=== PATIENT | female | born 1945 | race African-American/Black ===

== ENCOUNTER 2020-12-24 20:07 | Observation (INO) | payer MEDICARE ==
[2020-12-24] MEDS ORDERED: levETIRAcetam in NS 0 ML ONE (20:30)
[2020-12-24] MEDS ORDERED: levETIRAcetam 500 MG/5 ML VIAL ONE (20:32)
[2020-12-24 20:48] LABS: #Basophils 0.1 10x3/uL (0.0-0.2); #Eosinphils 0.1 10x3/uL (0.0-0.5); #Monocytes 0.8 10x3/uL (0.0-1.1); #Neutrophils 4.2 10x3/uL (1.5-8.4); %Basophils 0.9 % (0.0-2.0); %Eosinophils 0.9 % (0.0-6.0); %Lymphocytes 48.8 % (18.0-47.0); %Monocytes 8.1 % (0.0-10.0); %Neutrophils 40.9 % (40.0-75.0); Hemoglobin 12.6 g/dL (12.0-15.5); Mean Corpuscular HGB CONC 32.1 g/dL (32.0-36.0); Mean Corpuscular Hemoglobin 28.8 pg (27.0-33.0); Mean Corpuscular Volume 89.7 fl (81.6-98.3); Mean Platelet Volume 9.9 fl (7.4-10.4); Platelet Count 284 10x3/uL (150-450); RBC Distribution Width 13.5 % (11.5-14.5); Red Blood Cell (RBC) Count 4.38 10x6/uL (3.90-5.03); White Blood Cell (WBC) Count 10.2 10x3/uL (3.5-10.5)
[2020-12-24 21:03] LABS: ALT (SGPT) 10 U/L (8-55); AST (SGOT) 12 U/L (5-34); Acetaminophen Less than 6.0 mcg/mL (10.0-30.0); Albumin 3.9 g/dL (3.4-4.8); Alcohol Less than 10 mg/dL (Less than 10); Alkaline Phosphatase 120 U/L (40-110); Anion Gap 16 mmol/L (10-20); BUN (Urea Nitrogen) 11 mg/dL (9.8-20.1); Bilirubin, Total 0.3 mg/dL (0.2-1.2); Calc. Creatinine Clearance 0 mL/min (70-130); Carbon Dioxide 21 mmol/L (23-31); Chloride 104 mmol/L (98-107); Globulin 4.1 g/dL (2.4-3.5); Glucose 88 mg/dL (83-110); Potassium 3.1 mmol/L (3.5-5.1); Salicylate Less than 8.0 mg/dL (15.0-30.0); Sodium 138 mmol/L (136-145)
[2020-12-24] MEDS ORDERED: Ketorolac Tromethamine 30 MG/ML VIAL ONE (21:13)
[2020-12-24] MEDS ORDERED: Lorazepam 2 MG/ML VIAL ONE (22:21)
[2020-12-24] MEDS ORDERED: Lorazepam 2 MG/ML VIAL SLOW IVP PRN (23:33)
[2020-12-24] MEDS ORDERED: Calcium Carbonate 500 MG ChewTAB PO PRN (23:33)
[2020-12-24] MEDS ORDERED: Ondansetron PF 4 MG/2 ML Vial IVP PRN (23:33)
[2020-12-24] MEDS ORDERED: Senokot S 8.6-50 MG TAB PO PRN (23:33)
[2020-12-25] MEDS ORDERED: Sodium Chloride 0.9% 1,000 ML IV SCH (01:30)
[2020-12-25 01:39] VITALS: BMI 29.7
[2020-12-25] MEDS: Potassium Chloride 20 MEQ TAB PO SCH ×2 (01:42→05:00)
[2020-12-25] MEDS ORDERED: Lactated Ringer's 1,000 ML IV SCH (02:00)
[2020-12-25 02:28] LABS: Amphetamine Not Detected (NotDetected); Barbiturates Screen Detected (NotDetected); Benzodiazepine Screen Not Detected (NotDetected); Cocaine Metabolite Screen Not Detected (NotDetected); Methadone Not Detected (NotDetected); Methamphetamine Not Detected (NotDetected); Opiate Screen Not Detected (NotDetected); Oxycodone Screen Not Detected (NotDetected); Phencyclidine (PCP) Not Detected (NotDetected); THC/Cannabinoid Screen Not Detected (NotDetected); Tricyclic Screen Not Detected (NotDetected)
[2020-12-25] MEDS: Levothyroxine Sodium 100 MCG TAB PO SCH (05:01)
[2020-12-25 05:22] LABS: #Basophils 0.1 10x3/uL (0.0-0.2); #Eosinphils 0.1 10x3/uL (0.0-0.5); #Neutrophils 3.7 10x3/uL (1.5-8.4); %Eosinophils 1.2 % (0.0-6.0); %Monocytes 12.3 % (0.0-10.0); %Neutrophils 44.1 % (40.0-75.0); Hemoglobin 11.9 g/dL (12.0-15.5); Mean Corpuscular HGB CONC 32.2 g/dL (32.0-36.0); Mean Corpuscular Hemoglobin 29.4 pg (27.0-33.0); Mean Corpuscular Volume 91.1 fl (81.6-98.3); Mean Platelet Volume 10.3 fl (7.4-10.4); Platelet Count 259 10x3/uL (150-450); RBC Distribution Width 13.7 % (11.5-14.5); Red Blood Cell (RBC) Count 4.05 10x6/uL (3.90-5.03); White Blood Cell (WBC) Count 8.4 10x3/uL (3.5-10.5)
[2020-12-25 05:35] LABS: ALT (SGPT) 8 U/L (8-55); AST (SGOT) 10 U/L (5-34); Albumin 3.2 g/dL (3.4-4.8); Alkaline Phosphatase 102 U/L (40-110); Anion Gap 13 mmol/L (10-20); BUN (Urea Nitrogen) 9 mg/dL (9.8-20.1); Bilirubin, Total 0.2 mg/dL (0.2-1.2); CK (CPK) 110 U/L (29-168); Calc. Creatinine Clearance 82 mL/min (70-130); Calcium 8.3 mg/dL (7.8-10.44); Carbon Dioxide 21 mmol/L (23-31); Chloride 111 mmol/L (98-107); Glucose 88 mg/dL (83-110); Magnesium 1.8 mg/dL (1.6-2.6); Potassium 3.4 mmol/L (3.5-5.1); Protein, Total 6.2 g/dL (5.8-8.1); Sodium 142 mmol/L (136-145)
[2020-12-25 05:57] LABS: Free T4 (Free Thyroxine) 1.19 ng/dL (0.70-1.48)
[2020-12-25] MEDS ORDERED: Amlodipine 5 MG TAB PO SCH (09:00)
[2020-12-25] MEDS ORDERED: Electrolyte Replacement Protocol 1 EACH FS SCH (09:45)
[2020-12-25] MEDS: Acetaminophen 325 MG TAB PO PRN (09:58)
[2020-12-25] MEDS: levETIRAcetam 500 MG TAB PO SCH ×2 (10:00→21:14)
[2020-12-25] MEDS: Enoxaparin Sodium 40 MG/0.4 ML SYRINGE SC SCH (10:00)
[2020-12-25] MEDS: PHENobarbital 32.4 MG TAB PO SCH (10:00)
[2020-12-25] MEDS ORDERED: Electrolyte Replacement Protocol FS PRN (10:30)
[2020-12-25] MEDS ORDERED: Magnesium 2 GM/50 ML 2 GM in Premix Bag 1 BAG IVPB SCH (10:30)
[2020-12-25 10:53] LABS: Phosphorus 3.5 mg/dL (2.3-4.7)
[2020-12-25 15:42] LABS: SARS-CoV-2 PCR by NAA Not Detected (NotDetected)
[2020-12-25] MEDS ORDERED: Rosuvastatin 10 MG TAB PO SCH (21:00)
[2020-12-26 04:35] LABS: Anion Gap 11 mmol/L (10-20); BUN (Urea Nitrogen) 12 mg/dL (9.8-20.1); Calc. Creatinine Clearance 84 mL/min (70-130); Calcium 8.4 mg/dL (7.8-10.44); Carbon Dioxide 22 mmol/L (23-31); Chloride 112 mmol/L (98-107); Glucose 84 mg/dL (83-110); Magnesium 2.2 mg/dL (1.6-2.6); Potassium 4.4 mmol/L (3.5-5.1); Sodium 141 mmol/L (136-145)
[2020-12-26] MEDS: Levothyroxine Sodium 100 MCG TAB PO SCH (06:27)
[2020-12-26] MEDS: Enoxaparin Sodium 40 MG/0.4 ML SYRINGE SC SCH (10:04)
[2020-12-26] MEDS: levETIRAcetam 500 MG TAB PO SCH (10:04)
[2020-12-26] MEDS: PHENobarbital 32.4 MG TAB PO SCH (10:04)
[2020-12-26 16:01] VITALS: BP 148/63; TEMP 97.5
[2020-12-26] MEDS: Acetaminophen 325 MG TAB PO PRN (18:38)
== END 2020-12-26 18:49 | disposition home or self-care (01) ==
LOC: CSHERS 20:07 → CSHTELE 23:33 → UNDOADMOB 12-25 01:22 → CSHTELE 12-25 01:22
PROVIDERS: ADMIT Student in an Organized Health Care Education/Training Program; ATTEND Family Medicine
DX: G40.919 Epilepsy, unspecified, intractable, without status epilepticus (principal); G93.40 Encephalopathy, unspecified; E87.6 Hypokalemia; E03.9 Hypothyroidism, unspecified; I10 Essential (primary) hypertension; E78.5 Hyperlipidemia, unspecified; M10.9 Gout, unspecified; K21.9 Gastro-esophageal reflux disease without esophagitis; Z79.899 Other long term (current) drug therapy; Z90.49 Acquired absence of other specified parts of digestive tract; Z90.710 Acquired absence of both cervix and uterus; Z20.822 Contact with and (suspected) exposure to COVID-19
CPT/HCPCS: 70450; 80048; 80177; 80184; 80306; 80307; 82550; 83735 ×3; 84100; 84132; 84439; 93005; 93306; 93970; 94760; 96365; 96372 ×2; 96374; 96375 ×2; 97116; 97139 ×2; 99291; G0378 ×3; J1953; U0003; U0005; 36415; 80053; 84443; 85025; J1650; J1885; J2060; J3475; J7050; J7120

== ENCOUNTER 2021-06-14 21:45 | Observation (INO) | payer MEDICARE, OTHER ==
[2021-06-14] MEDS ORDERED: levETIRAcetam in NS 200 ML ONE (22:02)
[2021-06-14 22:32] LABS: Bilirubin Neg (Negative); Blood, Urine Negative (Negative); Clarity Clear (Clear); Glucose, Urine (Dipstick) Normal (Negative); Ketone, Urine Negative (Negative); Leukocyte 25 (Negative); Nitrite Negative (Negative); Protein, Urine (Dipstick) Negative (Neg-Trace)
[2021-06-14 22:42] LABS: Amphetamine Not Detected (NotDetected); Barbiturates Screen Detected (NotDetected); Benzodiazepine Screen Not Detected (NotDetected); Cocaine Metabolite Screen Not Detected (NotDetected); Methadone Not Detected (NotDetected); Methamphetamine Not Detected (NotDetected); Opiate Screen Not Detected (NotDetected); Oxycodone Screen Not Detected (NotDetected); Phencyclidine (PCP) Not Detected (NotDetected); THC/Cannabinoid Screen Not Detected (NotDetected); Tricyclic Screen Not Detected (NotDetected)
[2021-06-14 22:46] LABS: Bacteria/HPF 1+ HPF (None Seen); Mucous/LPF None Seen LPF (<2+); RBC/HPF None Seen HPF (0-3); Squamous Epithelial 0-3 HPF (0-3)
[2021-06-14 22:53] LABS: ALT (SGPT) 8 U/L (8-55); AST (SGOT) 14 U/L (5-34); Acetaminophen Less than 10.0 mcg/mL (10.0-30.0); Albumin 3.4 g/dL (3.4-4.8); Alcohol Less than 10 mg/dL (Less than 10); Alkaline Phosphatase 157 U/L (40-110); Anion Gap 10 mmol/L (10-20); BUN (Urea Nitrogen) 18 mg/dL (9.8-20.1); Bilirubin, Total 0.2 mg/dL (0.2-1.2); Calc. Creatinine Clearance 0 mL/min (70-130); Calcium 8.1 mg/dL (7.8-10.44); Carbon Dioxide 24 mmol/L (23-31); Chloride 108 mmol/L (98-107); Globulin 3.4 g/dL (2.4-3.5); Glucose 86 mg/dL (83-110); Potassium 3.5 mmol/L (3.5-5.1); Protein, Total 6.8 g/dL (5.8-8.1); Salicylate Less than 8.0 mg/dL (15.0-30.0); Sodium 138 mmol/L (136-145)
[2021-06-14 22:59] LABS: #Basophils 0.1 10x3/uL (0.0-0.2); #Eosinphils 0.2 10x3/uL (0.0-0.5); #Monocytes 0.9 10x3/uL (0.0-1.1); #Neutrophils 3.5 10x3/uL (1.5-8.4); %Basophils 0.9 % (0.0-2.0); %Eosinophils 1.8 % (0.0-6.0); %Lymphocytes 49.9 % (18.0-47.0); %Monocytes 9.2 % (0.0-10.0); Mean Corpuscular HGB CONC 33.1 g/dL (32.0-36.0); Mean Corpuscular Hemoglobin 29.9 pg (27.0-33.0); Mean Corpuscular Volume 90.4 fl (81.6-98.3); Mean Platelet Volume 10.1 fl (7.4-10.4); Platelet Count 251 10x3/uL (150-450); RBC Distribution Width 14.6 % (11.5-14.5); Red Blood Cell (RBC) Count 4.08 10x6/uL (3.90-5.03); White Blood Cell (WBC) Count 9.5 10x3/uL (3.5-10.5)
[2021-06-15] MEDS ORDERED: Calcium Carbonate 500 MG ChewTAB PO PRN (00:17)
[2021-06-15] MEDS ORDERED: Senokot S 8.6-50 MG TAB PO PRN (00:17)
[2021-06-15] MEDS ORDERED: Acetaminophen 325 MG TAB PO PRN (00:17)
[2021-06-15] MEDS ORDERED: Ondansetron PF 4 MG/2 ML Vial IVP PRN (00:17)
[2021-06-15] MEDS ORDERED: Guaifenesin DM 100-10/5 ML UDCUP PO PRN (00:17)
[2021-06-15] MEDS ORDERED: Lorazepam 2 MG/ML VIAL SLOW IVP PRN (00:25)
[2021-06-15] MEDS ORDERED: cefTRIAXone\\ROCEPHIN 1 GM VIAL ONE (00:45)
[2021-06-15 01:52] LABS: SARS-CoV-2 NAA Rapid Test Not Detected (NotDetected)
[2021-06-15 03:01] VITALS: BMI 30.2
[2021-06-15] MEDS: Potassium Chloride 20 MEQ in Premix Bag 1 BAG IVPB SCH ×2 (03:13→05:15)
[2021-06-15] MEDS ORDERED: Ziprasidone 20 MG VIAL IM SCH (04:30)
[2021-06-15 04:47] LABS: Anion Gap 13 mmol/L (10-20); BUN (Urea Nitrogen) 13 mg/dL (9.8-20.1); CK (CPK) 250 U/L (29-168); Calc. Creatinine Clearance 88 mL/min (70-130); Calcium 8.5 mg/dL (7.8-10.44); Carbon Dioxide 21 mmol/L (23-31); Chloride 111 mmol/L (98-107); Glucose 98 mg/dL (83-110); Magnesium 2.3 mg/dL (1.6-2.6); Potassium 3.9 mmol/L (3.5-5.1); Sodium 141 mmol/L (136-145)
[2021-06-15] MEDS: Levothyroxine Sodium 125 MCG TAB PO SCH (07:33)
[2021-06-15] MEDS ORDERED: levETIRAcetam 500 MG/5 ML VIAL SLOW IVP SCH (09:00)
[2021-06-15] MEDS: PHENobarbital 32.4 MG TAB PO SCH (09:44)
[2021-06-15] MEDS: Famotidine 20 MG TAB PO SCH ×2 (09:45→20:26)
[2021-06-15] MEDS: Potassium Chloride 10 MEQ TAB PO SCH (09:45)
[2021-06-15] MEDS: Rosuvastatin 10 MG TAB PO SCH (09:45)
[2021-06-15] MEDS: Enoxaparin Sodium 40 MG/0.4 ML SYRINGE SC SCH (09:46)
[2021-06-15] MEDS: levETIRAcetam 750 MG, Admixture Fee 1 EACH in Sodium Chloride 0.9% 100 ML IVPB SCH ×2 (09:46→20:26)
[2021-06-16 04:43] LABS: Mean Corpuscular HGB CONC 32.9 g/dL (32.0-36.0); Mean Corpuscular Hemoglobin 29.3 pg (27.0-33.0); Mean Platelet Volume 9.7 fl (7.4-10.4); Platelet Count 263 10x3/uL (150-450); RBC Distribution Width 14.8 % (11.5-14.5); White Blood Cell (WBC) Count 7.3 10x3/uL (3.5-10.5)
[2021-06-16 04:59] LABS: Anion Gap 9 mmol/L (10-20); BUN (Urea Nitrogen) 17 mg/dL (9.8-20.1); CK (CPK) 150 U/L (29-168); Calc. Creatinine Clearance 78 mL/min (70-130); Calcium 8.8 mg/dL (7.8-10.44); Carbon Dioxide 24 mmol/L (23-31); Chloride 112 mmol/L (98-107); Glucose 85 mg/dL (83-110); Potassium 4.7 mmol/L (3.5-5.1); Sodium 140 mmol/L (136-145)
[2021-06-16] MEDS: Levothyroxine Sodium 125 MCG TAB PO SCH (05:27)
[2021-06-16 06:37] LABS: MDiff Complete? YES
[2021-06-16 06:41] LABS: Band 1 % (5-11); Eosinophils 2 % (0-10); Lymphocytes 55 % (21-51); Metamyelocyte 1 % (0-0); Monocytes 5 % (0-10); Neutrophil 34 % (42-75); Reactive Lymphocytes 2 % (0-10)
[2021-06-16 06:42] LABS: Platelet Morphology Comment Appears Adequate; RBC Morphology Normal
[2021-06-16] MEDS: Famotidine 20 MG TAB PO SCH (09:53)
[2021-06-16] MEDS: Rosuvastatin 10 MG TAB PO SCH (09:54)
[2021-06-16] MEDS: Enoxaparin Sodium 40 MG/0.4 ML SYRINGE SC SCH (09:54)
[2021-06-16] MEDS: PHENobarbital 32.4 MG TAB PO SCH (09:55)
[2021-06-16] MEDS: Potassium Chloride 10 MEQ TAB PO SCH (09:55)
[2021-06-16] MEDS: levETIRAcetam 750 MG, Admixture Fee 1 EACH in Sodium Chloride 0.9% 100 ML IVPB SCH (09:56)
[2021-06-16 16:46] VITALS: BP 116/71; TEMP 98.1
== END 2021-06-16 17:00 | disposition home or self-care (01) ==
LOC: CSHERS 21:45 → CSHTELE 06-15 02:48
PROVIDERS: ADMIT Student in an Organized Health Care Education/Training Program; ATTEND Internal Medicine
DX: G40.909 Epilepsy, unspecified, not intractable, without status epilepticus (principal); N39.0 Urinary tract infection, site not specified; R07.9 Chest pain, unspecified; R93.89 Abnormal findings on diagnostic imaging of other specified body structures; G93.40 Encephalopathy, unspecified; I10 Essential (primary) hypertension; M10.9 Gout, unspecified; E78.2 Mixed hyperlipidemia; E03.9 Hypothyroidism, unspecified; Z79.899 Other long term (current) drug therapy; Z20.822 Contact with and (suspected) exposure to COVID-19
CPT/HCPCS: 51701; 70450; 71045; 80048 ×2; 80053; 80306; 80307; 82550 ×2; 83735; 84484 ×3; 85025 ×2; 87077; 87086; 87186; 93005; 96365; 96372 ×2; 96375 ×2; 96376 ×2; 97116; 99285; G0378 ×3; J1953 ×2; U0002; 36415; 81003; 81015; J0696; J1650; J3480; J3490

== ENCOUNTER 2021-09-06 23:55 | Emergency (ER) | payer OTHER ==
[2021-09-07 00:14] LABS: #Basophils 0.1 10x3/uL (0.0-0.2); #Eosinphils 0.1 10x3/uL (0.0-0.5); #Monocytes 0.9 10x3/uL (0.0-1.1); #Neutrophils 3.7 10x3/uL (1.5-8.4); %Basophils 0.9 % (0.0-2.0); %Eosinophils 1.5 % (0.0-6.0); %Lymphocytes 48.4 % (18.0-47.0); %Monocytes 9.3 % (0.0-10.0); %Neutrophils 39.7 % (40.0-75.0); Hemoglobin 11.2 g/dL (12.0-15.5); Mean Corpuscular HGB CONC 32.8 g/dL (32.0-36.0); Mean Corpuscular Hemoglobin 29.7 pg (27.0-33.0); Mean Corpuscular Volume 90.5 fl (81.6-98.3); Mean Platelet Volume 10.7 fl (7.4-10.4); Platelet Count 225 10x3/uL (150-450); RBC Distribution Width 14.4 % (11.5-14.5); Red Blood Cell (RBC) Count 3.77 10x6/uL (3.90-5.03); White Blood Cell (WBC) Count 9.2 10x3/uL (3.5-10.5)
[2021-09-07 00:35] LABS: Bilirubin Neg (Negative); Blood, Urine Negative (Negative); Clarity Clear (Clear); Glucose, Urine (Dipstick) Normal (Negative); Ketone, Urine Negative (Negative); Leukocyte Negative (Negative); Nitrite Negative (Negative); Protein, Urine (Dipstick) Negative (Neg-Trace); Urobilinogen Normal mg/dL (Less than 2)
[2021-09-07 00:41] LABS: Lavender RECEIVED; Red RECEIVED
[2021-09-07 01:01] LABS: ALT (SGPT) 14 U/L (8-55); AST (SGOT) 16 U/L (5-34); Albumin 3.1 g/dL (3.4-4.8); Alkaline Phosphatase 165 U/L (40-110); Anion Gap 11 mmol/L (10-20); BUN (Urea Nitrogen) 13 mg/dL (9.8-20.1); Bilirubin, Total 0.1 mg/dL (0.2-1.2); Calc. Creatinine Clearance 0 mL/min (70-130); Calcium 7.7 mg/dL (7.8-10.44); Carbon Dioxide 21 mmol/L (23-31); Chloride 112 mmol/L (98-107); Estimated GFR 90; Globulin 3.2 g/dL (2.4-3.5); Glucose 92 mg/dL (83-110); Potassium 3.5 mmol/L (3.5-5.1); Protein, Total 6.3 g/dL (5.8-8.1); Sodium 140 mmol/L (136-145)
== END 2021-09-07 02:06 | disposition home or self-care (01) ==
LOC: CSHERS 23:55
DX: R56.9 Unspecified convulsions (principal); E78.5 Hyperlipidemia, unspecified; I10 Essential (primary) hypertension; E03.9 Hypothyroidism, unspecified; Z79.899 Other long term (current) drug therapy
CPT/HCPCS: 36415; 70450; 80053; 80177; 80184; 81003; 83605; 83880; 84484; 85025; 93005

== ENCOUNTER 2022-03-24 20:20 | Emergency (ER) | payer OTHER ==
[2022-03-24] MEDS ORDERED: Acetaminophen 500 MG TAB ONE (20:58)
[2022-03-24 21:14] LABS: #Basophils 0.1 10x3/uL (0.0-0.2); #Eosinphils 0.1 10x3/uL (0.0-0.5); #Monocytes 0.9 10x3/uL (0.0-1.1); #Neutrophils 3.6 10x3/uL (1.5-8.4); %Basophils 0.9 % (0.0-2.0); %Eosinophils 1.4 % (0.0-6.0); %Lymphocytes 48.2 % (18.0-47.0); %Monocytes 9.5 % (0.0-10.0); %Neutrophils 39.8 % (40.0-75.0); Hemoglobin 11.9 g/dL (12.0-15.5); Mean Corpuscular HGB CONC 33.2 g/dL (32.0-36.0); Mean Corpuscular Hemoglobin 29.8 pg (27.0-33.0); Mean Corpuscular Volume 89.5 fl (81.6-98.3); Mean Platelet Volume 10.1 fl (7.4-10.4); Platelet Count 233 10x3/uL (150-450); RBC Distribution Width 13.9 % (11.5-14.5)
[2022-03-24 21:27] LABS: ALT (SGPT) 14 U/L (8-55); AST (SGOT) 20 U/L (5-34); Albumin 3.4 g/dL (3.4-4.8); Alkaline Phosphatase 172 U/L (40-110); Anion Gap 11 mmol/L (10-20); BUN (Urea Nitrogen) 9 mg/dL (9.8-20.1); Bilirubin, Total 0.1 mg/dL (0.2-1.2); Calc. Creatinine Clearance 0 mL/min (70-130); Calcium 7.6 mg/dL (7.8-10.44); Carbon Dioxide 22 mmol/L (23-31); Chloride 109 mmol/L (98-107); Estimated GFR 69; Glucose 94 mg/dL (83-110); Potassium 3.4 mmol/L (3.5-5.1); Protein, Total 6.4 g/dL (5.8-8.1); Sodium 139 mmol/L (136-145)
[2022-03-24 21:59] LABS: Bilirubin Neg (Negative); Blood, Urine Negative (Negative); Clarity Clear (Clear); Glucose, Urine (Dipstick) Normal (Negative); Ketone, Urine Negative (Negative); Leukocyte Negative (Negative); Nitrite Negative (Negative); Protein, Urine (Dipstick) Negative (Neg-Trace); Urobilinogen Normal mg/dL (Less than 2)
[2022-03-24 22:08] LABS: Amphetamine Not Detected (NotDetected); Barbiturates Screen Detected (NotDetected); Benzodiazepine Screen Not Detected (NotDetected); Cocaine Metabolite Screen Not Detected (NotDetected); Methadone Not Detected (NotDetected); Methamphetamine Not Detected (NotDetected); Opiate Screen Not Detected (NotDetected); Oxycodone Screen Not Detected (NotDetected); Phencyclidine (PCP) Not Detected (NotDetected); THC/Cannabinoid Screen Not Detected (NotDetected); Tricyclic Screen Not Detected (NotDetected)
== END 2022-03-24 23:17 | disposition home or self-care (01) ==
LOC: CSHERS 20:20
DX: G40.802 Other epilepsy, not intractable, without status epilepticus (principal); E78.2 Mixed hyperlipidemia; I10 Essential (primary) hypertension; E03.9 Hypothyroidism, unspecified; Z79.899 Other long term (current) drug therapy
CPT/HCPCS: 36415; 70450; 71045; 80053; 80306; 81003; 84145; 84484; 85025; 93005

== ENCOUNTER 2022-05-21 19:59 | Emergency (ER) | payer OTHER ==
[2022-05-21] MEDS ORDERED: levETIRAcetam 500 MG/5 ML VIAL ONE (20:15)
[2022-05-21 20:42] LABS: Hemoglobin 12.6 g/dL (12.0-15.5); Mean Corpuscular HGB CONC 33.9 g/dL (32.0-36.0); Mean Corpuscular Hemoglobin 29.6 pg (27.0-33.0); Mean Corpuscular Volume 87.5 fl (81.6-98.3); Mean Platelet Volume 9.9 fl (7.4-10.4); Platelet Count 285 10x3/uL (150-450); Red Blood Cell (RBC) Count 4.25 10x6/uL (3.90-5.03); White Blood Cell (WBC) Count 8.8 10x3/uL (3.5-10.5)
[2022-05-21 20:52] LABS: #Basophils 0.1 10x3/uL (0.0-0.2); #Eosinphils 0.1 10x3/uL (0.0-0.5); #Monocytes 0.6 10x3/uL (0.0-1.1); #Neutrophils 2.9 10x3/uL (1.5-8.4); %Basophils 0.8 % (0.0-2.0); %Eosinophils 1.5 % (0.0-6.0); %Lymphocytes 57.6 % (18.0-47.0); %Monocytes 6.8 % (0.0-10.0); %Neutrophils 33.1 % (40.0-75.0); ALT (SGPT) 16 U/L (8-55); AST (SGOT) 17 U/L (5-34); Acetaminophen Less than 10.0 mcg/mL (10.0-30.0); Albumin 3.4 g/dL (3.4-4.8); Alcohol Less than 10 mg/dL (Less than 10); Alkaline Phosphatase 157 U/L (40-110); Anion Gap 12 mmol/L (10-20); BUN (Urea Nitrogen) 12 mg/dL (9.8-20.1); Bilirubin, Total 0.2 mg/dL (0.2-1.2); Calc. Creatinine Clearance 0 mL/min (70-130); Calcium 7.8 mg/dL (7.8-10.44); Carbon Dioxide 22 mmol/L (23-31); Chloride 104 mmol/L (98-107); Estimated GFR 82; Globulin 3.6 g/dL (2.4-3.5); Glucose 92 mg/dL (83-110); Magnesium 2.1 mg/dL (1.6-2.6); Potassium 3.4 mmol/L (3.5-5.1); Salicylate Less than 8.0 mg/dL (15.0-30.0); Sodium 135 mmol/L (136-145)
[2022-05-21 20:53] LABS: Manual Diff?? YES
[2022-05-21 20:54] LABS: MDiff Complete? YES
[2022-05-21 21:00] LABS: Eosinophils 2 % (0-10); Lymphocytes 60 % (21-51); Monocytes 4 % (0-10); Neutrophil 33 % (42-75)
[2022-05-21 21:01] LABS: Platelet Morphology Comment Appears Adequate; RBC Morphology Normal
[2022-05-21] MEDS ORDERED: Acetaminophen 500 MG TAB ONE (21:45)
== END 2022-05-21 23:05 | disposition home or self-care (01) ==
LOC: CSHERS 19:59
DX: R56.9 Unspecified convulsions (principal); E78.5 Hyperlipidemia, unspecified; I10 Essential (primary) hypertension; Z79.899 Other long term (current) drug therapy
CPT/HCPCS: 70450; 72125; 80053; 80307; 82962; 83735; 84484; 85025; 96365; 99284; J1953; 36416

== ENCOUNTER 2022-09-25 17:50 | Emergency (ER) | payer OTHER ==
[2022-09-25 19:02] LABS: Bilirubin Neg (Negative); Blood, Urine 10 (Negative); Clarity Clear (Clear); Glucose, Urine (Dipstick) Normal (Negative); Ketone, Urine Negative (Negative); Leukocyte Negative (Negative); Nitrite Negative (Negative); Protein, Urine (Dipstick) Negative (Neg-Trace); Specific Gravity, Urine 1.005 (1.005-1.030); Urobilinogen Normal mg/dL (Less than 2)
[2022-09-25 19:13] LABS: Bacteria/HPF Rare-Few HPF (None Seen); CAUTI Indications for Culture Alt mental st,lethar; RBC/HPF 0-3 HPF (0-3); Squamous Epithelial 0-3 HPF (0-3); WBC/HPF None Seen HPF (0-3)
[2022-09-25 19:14] LABS: Urine Culture Reflex No No
[2022-09-25 19:45] LABS: #Basophils 0.1 10x3/uL (0.0-0.2); #Eosinphils 0.1 10x3/uL (0.0-0.5); #Neutrophils 4.2 10x3/uL (1.5-8.4); %Basophils 0.6 % (0.0-2.0); %Eosinophils 0.6 % (0.0-6.0); %Lymphocytes 42.7 % (18.0-47.0); %Monocytes 10.5 % (0.0-10.0); %Neutrophils 45.4 % (40.0-75.0); Hematocrit 37.8 % (34.9-44.5); Hemoglobin 12.7 g/dL (12.0-15.5); Mean Corpuscular HGB CONC 33.6 g/dL (32.0-36.0); Mean Corpuscular Hemoglobin 31.1 pg (27.0-33.0); Mean Corpuscular Volume 92.6 fl (81.6-98.3); Mean Platelet Volume 9.8 fl (7.4-10.4); Platelet Count 281 10x3/uL (150-450); Red Blood Cell (RBC) Count 4.08 10x6/uL (3.90-5.03); White Blood Cell (WBC) Count 9.3 10x3/uL (3.5-10.5)
[2022-09-25 19:52] LABS: ALT (SGPT) 17 U/L (8-55); AST (SGOT) 19 U/L (5-34); Albumin 3.7 g/dL (3.4-4.8); Alkaline Phosphatase 141 U/L (40-110); Anion Gap 14 mmol/L (10-20); BUN (Urea Nitrogen) 12 mg/dL (9.8-20.1); Bilirubin, Total 0.2 mg/dL (0.2-1.2); Calc. Creatinine Clearance 0 mL/min (70-130); Calcium 8.2 mg/dL (7.8-10.44); Carbon Dioxide 22 mmol/L (23-31); Chloride 107 mmol/L (98-107); Estimated GFR 65; Globulin 3.7 g/dL (2.4-3.5); Glucose 76 mg/dL (83-110); Potassium 3.9 mmol/L (3.5-5.1); Protein, Total 7.4 g/dL (5.8-8.1); Sodium 139 mmol/L (136-145)
== END 2022-09-25 21:48 | disposition home or self-care (01) ==
LOC: CSHERS 17:50
DX: R56.9 Unspecified convulsions (principal); E78.5 Hyperlipidemia, unspecified; I10 Essential (primary) hypertension; E03.9 Hypothyroidism, unspecified
CPT/HCPCS: 36416; 70450; 80053; 81001; 85025; 93005

== ENCOUNTER 2023-04-01 19:21 | Emergency (ER) | payer OTHER ==
[2023-04-01] MEDS ORDERED: levETIRAcetam 500 MG (5 mL) VIAL ONE (19:45)
[2023-04-01 20:05] LABS: #Basophils 0.1 10x3/uL (0.0-0.2); #Eosinphils 0.2 10x3/uL (0.0-0.5); #Monocytes 0.7 10x3/uL (0.0-1.1); #Neutrophils 2.6 10x3/uL (1.5-8.4); %Basophils 1.2 % (0.0-2.0); %Eosinophils 2.4 % (0.0-6.0); %Lymphocytes 52.7 % (18.0-47.0); %Monocytes 9.3 % (0.0-10.0); %Neutrophils 34.1 % (40.0-75.0); Hematocrit 35.7 % (34.9-44.5); Hemoglobin 12.1 g/dL (12.0-15.5); Mean Corpuscular HGB CONC 33.9 g/dL (32.0-36.0); Mean Corpuscular Hemoglobin 29.7 pg (27.0-33.0); Mean Corpuscular Volume 87.7 fl (81.6-98.3); Mean Platelet Volume 9.9 fl (7.4-10.4); Platelet Count 303 10x3/uL (150-450); RBC Distribution Width 14.3 % (11.5-14.5); Red Blood Cell (RBC) Count 4.07 10x6/uL (3.90-5.03); White Blood Cell (WBC) Count 7.5 10x3/uL (3.5-10.5)
[2023-04-01 20:11] LABS: Acetaminophen Less than 10 mcg/mL (10.0-30.0); Alcohol Less than 10.0 mg/dL (Less than 10); Salicylate Less than 8.0 mg/dL (15.0-30.0)
[2023-04-01 20:13] LABS: ALT (SGPT) 10 U/L (8-55); AST (SGOT) 15 U/L (5-34); Albumin 3.6 g/dL (3.4-4.8); Alkaline Phosphatase 155 U/L (40-110); Anion Gap 10 mmol/L (10-20); BUN (Urea Nitrogen) 11 mg/dL (9.8-20.1); Bilirubin, Total Less than 0.2 mg/dL (0.2-1.2); Calc. Creatinine Clearance 0 mL/min (70-130); Calcium 8.3 mg/dL (7.8-10.44); Carbon Dioxide 21 mmol/L (23-31); Chloride 110 mmol/L (98-107); Estimated GFR 68; Globulin 3.5 g/dL (2.4-3.5); Glucose 97 mg/dL (83-110); Potassium 3.2 mmol/L (3.5-5.1); Protein, Total 7.1 g/dL (5.8-8.1); Sodium 138 mmol/L (136-145)
[2023-04-01 21:24] LABS: Bilirubin Neg (Negative); Blood, Urine Negative (Negative); Clarity Clear (Clear); Glucose, Urine (Dipstick) Normal (Negative); Ketone, Urine Negative (Negative); Leukocyte 25 (Negative); Nitrite Negative (Negative); Protein, Urine (Dipstick) Negative (Neg-Trace); Urobilinogen Normal mg/dL (Less than 2); pH, Urine 6.5 (5.0-9.0)
[2023-04-01 21:49] LABS: Amphetamine Not Detected (NotDetected); Barbiturates Screen Detected (NotDetected); Benzodiazepine Screen Not Detected (NotDetected); Cocaine Metabolite Screen Not Detected (NotDetected); Methadone Not Detected (NotDetected); Methamphetamine Not Detected (NotDetected); Opiate Screen Not Detected (NotDetected); Oxycodone Screen Not Detected (NotDetected); Phencyclidine (PCP) Not Detected (NotDetected); THC/Cannabinoid Screen Not Detected (NotDetected); Tricyclic Screen Not Detected (NotDetected)
[2023-04-01 22:23] LABS: CAUTI Indications for Culture Alt mental st,lethar; RBC/HPF 0-3 HPF (0-3); Squamous Epithelial 0-3 HPF (0-3); Transitional Epithelial 0-3 HPF (None Seen); WBC/HPF 0-3 HPF (0-3)
[2023-04-01 22:24] LABS: Bacteria/HPF Rare-Few HPF (None Seen)
[2023-04-01 22:25] LABS: Urine Culture Reflex No No
== END 2023-04-01 22:45 | disposition home or self-care (01) ==
LOC: CSHERS 19:21
DX: R56.9 Unspecified convulsions (principal); I10 Essential (primary) hypertension
CPT/HCPCS: 80053; 80177; 80306; 80307; 81001; 83735; 85025; 93005; J1953; 36415; 51701; 96374

== ENCOUNTER 2023-04-17 20:09 | Emergency (ER) | payer OTHER ==
[2023-04-17] MEDS ORDERED: levETIRAcetam 500 MG (5 mL) VIAL ONE (20:54)
[2023-04-17 21:01] LABS: #Basophils 0.1 10x3/uL (0.0-0.2); #Eosinphils 0.1 10x3/uL (0.0-0.5); #Monocytes 0.7 10x3/uL (0.0-1.1); #Neutrophils 3.7 10x3/uL (1.5-8.4); %Basophils 0.9 % (0.0-2.0); %Eosinophils 1.1 % (0.0-6.0); %Lymphocytes 47.9 % (18.0-47.0); %Monocytes 8.2 % (0.0-10.0); %Neutrophils 41.5 % (40.0-75.0); Hematocrit 36.6 % (34.9-44.5); Hemoglobin 12.1 g/dL (12.0-15.5); Mean Corpuscular HGB CONC 33.1 g/dL (32.0-36.0); Mean Corpuscular Hemoglobin 29.2 pg (27.0-33.0); Mean Corpuscular Volume 88.4 fl (81.6-98.3); Mean Platelet Volume 9.4 fl (7.4-10.4); Platelet Count 340 10x3/uL (150-450); RBC Distribution Width 14.6 % (11.5-14.5); Red Blood Cell (RBC) Count 4.14 10x6/uL (3.90-5.03); White Blood Cell (WBC) Count 8.9 10x3/uL (3.5-10.5)
[2023-04-17 21:14] LABS: ALT (SGPT) 14 U/L (8-55); AST (SGOT) 18 U/L (5-34); Albumin 3.8 g/dL (3.4-4.8); Alkaline Phosphatase 144 U/L (40-110); Anion Gap 13 mmol/L (10-20); BUN (Urea Nitrogen) 15 mg/dL (9.8-20.1); Bilirubin, Total 0.2 mg/dL (0.2-1.2); Calc. Creatinine Clearance 0 mL/min (70-130); Calcium 8.4 mg/dL (7.8-10.44); Carbon Dioxide 18 mmol/L (23-31); Chloride 107 mmol/L (98-107); Estimated GFR 69; Globulin 3.7 g/dL (2.4-3.5); Glucose 94 mg/dL (83-110); Magnesium 2.3 mg/dL (1.6-2.6); Potassium 4.2 mmol/L (3.5-5.1); Protein, Total 7.5 g/dL (5.8-8.1); Sodium 134 mmol/L (136-145)
[2023-04-17 21:34] LABS: Bilirubin Neg (Negative); Blood, Urine Negative (Negative); Clarity Clear (Clear); Glucose, Urine (Dipstick) Normal (Negative); Ketone, Urine Negative (Negative); Leukocyte Negative (Negative); Nitrite Negative (Negative); Protein, Urine (Dipstick) Negative (Neg-Trace); Specific Gravity, Urine 1.015 (1.005-1.030); Urobilinogen Normal mg/dL (Less than 2)
[2023-04-17 21:44] LABS: Bacteria/HPF None Seen HPF (None Seen); CAUTI Indications for Culture Alt mental st,lethar; RBC/HPF None Seen HPF (0-3); Squamous Epithelial 0-3 HPF (0-3); WBC/HPF None Seen HPF (0-3)
[2023-04-17 21:45] LABS: Urine Culture Reflex No No
== END 2023-04-17 23:00 | disposition home or self-care (01) ==
LOC: CSHERS 20:09
DX: R56.9 Unspecified convulsions (principal); I10 Essential (primary) hypertension; E78.5 Hyperlipidemia, unspecified; E03.9 Hypothyroidism, unspecified; M19.90 Unspecified osteoarthritis, unspecified site; Z55.6 Problems related to health literacy; Z79.899 Other long term (current) drug therapy
CPT/HCPCS: 80053; 81001; 83735; 85025; 93005; J1953; 51701; 96361; 96365

== ENCOUNTER 2023-04-18 11:21 | Emergency (ER) | payer OTHER ==
[2023-04-18] MEDS ORDERED: levETIRAcetam 500 MG (5 mL) VIAL ONE ×2 (12:02→12:07)
[2023-04-18 12:35] LABS: #Basophils 0.1 10x3/uL (0.0-0.2); #Eosinphils 0.1 10x3/uL (0.0-0.5); #Monocytes 0.8 10x3/uL (0.0-1.1); %Basophils 1.1 % (0.0-2.0); %Lymphocytes 36.4 % (18.0-47.0); %Monocytes 8.1 % (0.0-10.0); ALT (SGPT) 15 U/L (8-55); AST (SGOT) 18 U/L (5-34); Albumin 4.1 g/dL (3.4-4.8); Alkaline Phosphatase 145 U/L (40-110); Anion Gap 12 mmol/L (10-20); BUN (Urea Nitrogen) 9 mg/dL (9.8-20.1); Bilirubin, Total 0.3 mg/dL (0.2-1.2); Calc. Creatinine Clearance 0 mL/min (70-130); Calcium 8.9 mg/dL (7.8-10.44); Carbon Dioxide 23 mmol/L (23-31); Chloride 107 mmol/L (98-107); Estimated GFR 69; Globulin 4.1 g/dL (2.4-3.5); Glucose 86 mg/dL (83-110); Hematocrit 38.9 % (34.9-44.5); Hemoglobin 13.2 g/dL (12.0-15.5); Magnesium 2.3 mg/dL (1.6-2.6); Mean Corpuscular HGB CONC 33.9 g/dL (32.0-36.0); Mean Corpuscular Hemoglobin 30.2 pg (27.0-33.0); Mean Platelet Volume 9.7 fl (7.4-10.4); Platelet Count 362 10x3/uL (150-450); Potassium 4.7 mmol/L (3.5-5.1); Protein, Total 8.2 g/dL (5.8-8.1); RBC Distribution Width 14.6 % (11.5-14.5); Red Blood Cell (RBC) Count 4.37 10x6/uL (3.90-5.03); Sodium 137 mmol/L (136-145); Troponin I Less than 0.010 ng/mL (< 0.028); White Blood Cell (WBC) Count 9.4 10x3/uL (3.5-10.5)
[2023-04-18 14:15] LABS: Bilirubin Neg (Negative); Blood, Urine Negative (Negative); Clarity Clear (Clear); Glucose, Urine (Dipstick) Normal (Negative); Ketone, Urine Negative (Negative); Leukocyte Negative (Negative); Nitrite Negative (Negative); Protein, Urine (Dipstick) Negative (Neg-Trace); Urobilinogen Normal mg/dL (Less than 2)
[2023-04-18 14:31] LABS: Bacteria/HPF Rare-Few HPF (None Seen); CAUTI Indications for Culture Alt mental st,lethar; RBC/HPF 0-3 HPF (0-3); Squamous Epithelial 0-3 HPF (0-3); WBC/HPF 0-3 HPF (0-3)
[2023-04-18 14:33] LABS: Urine Culture Reflex No No
[2023-04-18 14:52] LABS: Amphetamine Not Detected (NotDetected); Barbiturates Screen Detected (NotDetected); Benzodiazepine Screen Not Detected (NotDetected); Cocaine Metabolite Screen Not Detected (NotDetected); Methadone Not Detected (NotDetected); Methamphetamine Not Detected (NotDetected); Opiate Screen Not Detected (NotDetected); Oxycodone Screen Not Detected (NotDetected); Phencyclidine (PCP) Not Detected (NotDetected); THC/Cannabinoid Screen Not Detected (NotDetected); Tricyclic Screen Not Detected (NotDetected)
[2023-04-18] MEDS ORDERED: Ondansetron ODT 4 MG TAB SL PRN (19:00)
[2023-04-18] MEDS ORDERED: Acetaminophen 325 MG TAB PO PRN (19:00)
[2023-04-18] MEDS ORDERED: Ondansetron PF 4 MG/2 ML Vial IVP PRN (19:00)
== END 2023-04-18 17:17 | disposition short-term general hospital (02) ==
LOC: CSHERS 11:21
DX: R55 Syncope and collapse (principal); R56.9 Unspecified convulsions; I10 Essential (primary) hypertension
CPT/HCPCS: 70450; 71045; 73564; 80053; 80177; 80306; 81001; 83605; 83735; 83880; 84146; 84484; 85025; 93005; J1953; 96374

== ENCOUNTER 2023-07-11 16:23 | Emergency (ER) | payer OTHER ==
[2023-07-11] MEDS ORDERED: levETIRAcetam 500 MG (5 mL) VIAL ONE (16:52)
[2023-07-11 17:17] LABS: #Basophils 0.06 10x3/uL (0.0-0.2); #Eosinphils 0.08 10x3/uL (0.0-0.5); #Monocytes 0.94 10x3/uL (0.0-1.1); #Neutrophils 3.77 10x3/uL (1.5-8.4); %Basophils 0.6 % (0.0-2.0); %Eosinophils 0.8 % (0.0-6.0); %Lymphocytes 49.7 % (18.0-47.0); %Monocytes 9.7 % (0.0-10.0); Hematocrit 35.8 % (34.9-44.5); Hemoglobin 12.2 g/dL (12.0-15.5); Mean Corpuscular HGB CONC 34.1 g/dL (32.0-36.0); Mean Corpuscular Hemoglobin 30.6 pg (27.0-33.0); Mean Corpuscular Volume 89.7 fl (81.6-98.3); Mean Platelet Volume 9.9 fl (7.4-10.4); Platelet Count 306 10x3/uL (150-450); RBC Distribution Width 14.2 % (11.5-14.5); Red Blood Cell (RBC) Count 3.99 10x6/uL (3.90-5.03); White Blood Cell (WBC) Count 9.7 10x3/uL (3.5-10.5)
[2023-07-11 17:21] LABS: Acetaminophen Less than 10 mcg/mL (10.0-30.0); Alcohol Less than 10.0 mg/dL (Less than 10); Salicylate Less than 8.0 mg/dL (15.0-30.0)
[2023-07-11 17:25] LABS: Troponin I Less than 0.010 ng/mL (< 0.028)
[2023-07-11 17:44] LABS: ALT (SGPT) 16 U/L (8-55); AST (SGOT) 15 U/L (5-34); Albumin 3.4 g/dL (3.4-4.8); Alkaline Phosphatase 143 U/L (40-110); Anion Gap 16 mmol/L (10-20); BUN (Urea Nitrogen) 17 mg/dL (9.8-20.1); Bilirubin, Total 0.2 mg/dL (0.2-1.2); Calc. Creatinine Clearance 0 mL/min (70-130); Calcium 8.7 mg/dL (7.8-10.44); Carbon Dioxide 20 mmol/L (23-31); Chloride 107 mmol/L (98-107); Estimated GFR 52; Globulin 3.4 g/dL (2.4-3.5); Glucose 85 mg/dL (83-110); Protein, Total 6.8 g/dL (5.8-8.1); Sodium 139 mmol/L (136-145)
[2023-07-11 18:20] LABS: Bilirubin Neg (Negative); Blood, Urine Negative (Negative); Clarity Clear (Clear); Glucose, Urine (Dipstick) Normal (Negative); Ketone, Urine Negative (Negative); Leukocyte Negative (Negative); Nitrite Negative (Negative); Protein, Urine (Dipstick) Negative (Neg-Trace); Specific Gravity, Urine 1.015 (1.005-1.030); Urobilinogen Normal mg/dL (Less than 2)
[2023-07-11 18:28] LABS: Amphetamine Not Detected (NotDetected); Bacteria/HPF Rare-Few HPF (None Seen); Barbiturates Screen Detected (NotDetected); Benzodiazepine Screen Not Detected (NotDetected); CAUTI Indications for Culture Alt mental st,lethar; Cocaine Metabolite Screen Not Detected (NotDetected); Methadone Not Detected (NotDetected); Methamphetamine Not Detected (NotDetected); Opiate Screen Not Detected (NotDetected); Oxycodone Screen Not Detected (NotDetected); Phencyclidine (PCP) Not Detected (NotDetected); RBC/HPF None Seen HPF (0-3); Squamous Epithelial 0-3 HPF (0-3); THC/Cannabinoid Screen Not Detected (NotDetected); Tricyclic Screen Not Detected (NotDetected); WBC/HPF 0-3 HPF (0-3)
[2023-07-11 18:29] LABS: Urine Culture Reflex No No
== END 2023-07-11 23:01 | disposition short-term general hospital (02) ==
LOC: CSHERS 16:23
DX: R56.9 Unspecified convulsions (principal); R26.2 Difficulty in walking, not elsewhere classified; I10 Essential (primary) hypertension; E03.9 Hypothyroidism, unspecified; E78.5 Hyperlipidemia, unspecified; Z79.899 Other long term (current) drug therapy
CPT/HCPCS: 70450; 73502; 80053; 80306; 80307; 81001; 82140; 83605; 84484; 85025; 87086; 93005; 96365; 96366; 99285; J1953

== ENCOUNTER 2023-08-11 18:17 | Observation (INO) | payer OTHER ==
[~2023-08-11 18:17] MED LIST: Iopamidol 300 61% 100 ML VIAL FS ONE
[2023-08-11 19:00] LABS: #Basophils 0.06 10x3/uL (0.0-0.2); #Eosinphils 0.06 10x3/uL (0.0-0.5); #Monocytes 0.91 10x3/uL (0.0-1.1); #Neutrophils 4.69 10x3/uL (1.5-8.4); %Basophils 0.7 % (0.0-2.0); %Eosinophils 0.7 % (0.0-6.0); %Lymphocytes 36.8 % (18.0-47.0); %Neutrophils 51.4 % (40.0-75.0); Hematocrit 34.5 % (34.9-44.5); Mean Corpuscular HGB CONC 34.8 g/dL (32.0-36.0); Mean Corpuscular Volume 89.1 fL (81.6-98.3); Mean Platelet Volume 9.9 fL (7.4-10.4); Platelet Count 303 10x3/uL (150-450); RBC Distribution Width 13.8 % (11.5-14.5); Red Blood Cell (RBC) Count 3.87 10x6/uL (3.90-5.03); White Blood Cell (WBC) Count 9.1 10x3/uL (3.5-10.5)
[2023-08-11 19:16] LABS: ALT (SGPT) 14 U/L (8-55); AST (SGOT) 17 U/L (5-34); Acetaminophen Less than 10 mcg/mL (10.0-30.0); Albumin 3.2 g/dL (3.4-4.8); Alcohol Less than 10.0 mg/dL (Less than 10); Alkaline Phosphatase 102 U/L (40-110); Anion Gap 16 mmol/L (10-20); BUN (Urea Nitrogen) 13 mg/dL (9.8-20.1); Bilirubin, Total 0.2 mg/dL (0.2-1.2); CK (CPK) 93 U/L (29-168); Calc. Creatinine Clearance 0 mL/min (70-130); Calcium 8.7 mg/dL (7.8-10.44); Carbon Dioxide 18 mmol/L (23-31); Chloride 108 mmol/L (98-107); Estimated GFR 62; Glucose 95 mg/dL (83-110); Potassium 2.8 mmol/L (3.5-5.1); Protein, Total 7.2 g/dL (5.8-8.1); Salicylate Less than 8.0 mg/dL (15.0-30.0); Sodium 139 mmol/L (136-145)
[2023-08-11] MEDS ORDERED: Lorazepam 2 MG/ML VIAL ONE (19:30)
[2023-08-11] MEDS ORDERED: levETIRAcetam 500 MG (5 mL) VIAL ONE (19:34)
[2023-08-11] MEDS ORDERED: Potassium Chloride 20 MEQ (100 mL) BAG ONE (19:52)
[2023-08-11 19:58] LABS: Troponin I Less than 0.010 ng/mL (< 0.028)
[2023-08-11 22:19] LABS: Bilirubin Neg (Negative); Blood, Urine Negative (Negative); Clarity Clear (Clear); Glucose, Urine (Dipstick) Normal (Negative); Ketone, Urine Negative (Negative); Leukocyte Negative (Negative); Nitrite Negative (Negative); Protein, Urine (Dipstick) Negative (Neg-Trace); Urobilinogen Normal mg/dL (Less than 2)
[2023-08-11 22:27] LABS: Amphetamine Not Detected (NotDetected); Barbiturates Screen Detected (NotDetected); Benzodiazepine Screen Not Detected (NotDetected); Cocaine Metabolite Screen Not Detected (NotDetected); Methadone Not Detected (NotDetected); Methamphetamine Not Detected (NotDetected); Opiate Screen Not Detected (NotDetected); Oxycodone Screen Not Detected (NotDetected); Phencyclidine (PCP) Not Detected (NotDetected); THC/Cannabinoid Screen Not Detected (NotDetected); Tricyclic Screen Not Detected (NotDetected)
[2023-08-11 22:29] LABS: Pregnancy Test - Urine (BHCG) Negative (Negative); Pregu Control Background? CLEAR/WHITE (CLR/WHITE); Pregu Control Bar Appear? YES (CONTROL BAR)
[2023-08-11 22:36] LABS: CAUTI Indications for Culture Pelvic or flank pain; RBC/HPF None Seen HPF (0-3); Squamous Epithelial None Seen HPF (0-3); WBC/HPF None Seen HPF (0-3)
[2023-08-11 22:37] LABS: Bacteria/HPF None Seen HPF (None Seen); Urine Culture Reflex No No
[2023-08-12 05:00] VITALS: BMI 30.1
[2023-08-12] MEDS ORDERED: Ondansetron PF 4 MG/2 ML Vial IVP PRN (06:24)
[2023-08-12 07:14] LABS: #Basophils 0.06 10x3/uL (0.0-0.2); #Eosinphils 0.12 10x3/uL (0.0-0.5); #Monocytes 0.86 10x3/uL (0.0-1.1); %Basophils 0.7 % (0.0-2.0); %Eosinophils 1.4 % (0.0-6.0); %Lymphocytes 37.3 % (18.0-47.0); %Monocytes 10.2 % (0.0-10.0); Hematocrit 37.9 % (34.9-44.5); Mean Corpuscular HGB CONC 34.3 g/dL (32.0-36.0); Mean Corpuscular Hemoglobin 30.6 pg (27.0-33.0); Mean Corpuscular Volume 89.2 fL (81.6-98.3); Mean Platelet Volume 9.9 fL (7.4-10.4); Platelet Count 296 10x3/uL (150-450); RBC Distribution Width 13.8 % (11.5-14.5); Red Blood Cell (RBC) Count 4.25 10x6/uL (3.90-5.03); White Blood Cell (WBC) Count 8.4 10x3/uL (3.5-10.5)
[2023-08-12 07:24] LABS: Anion Gap 15 mmol/L (10-20); BUN (Urea Nitrogen) 9 mg/dL (9.8-20.1); Calc. Creatinine Clearance 70 mL/min (70-130); Calcium 9.4 mg/dL (7.8-10.44); Carbon Dioxide 21 mmol/L (23-31); Chloride 108 mmol/L (98-107); Estimated GFR 73; Glucose 90 mg/dL (83-110); Magnesium 1.9 mg/dL (1.6-2.6); Potassium 3.3 mmol/L (3.5-5.1); Sodium 141 mmol/L (136-145)
[2023-08-12] MEDS: Levothyroxine Sodium 100 MCG TAB PO SCH (07:55)
[2023-08-12] MEDS: Famotidine/PF 20 mg/2ml Vial SLOW IVP SCH (09:19)
[2023-08-12] MEDS: Enoxaparin 40 MG (0.4 mL) SYRINGE SC SCH (09:19)
[2023-08-12] MEDS: levETIRAcetam 500 MG TAB PO SCH ×2 (09:21→21:01)
[2023-08-12] MEDS: Furosemide 40 MG TAB PO SCH (09:21)
[2023-08-12] MEDS: Pantoprazole DR 40 MG TAB PO SCH (09:25)
[2023-08-12] MEDS: PHENobarbital 32.4 MG TAB PO SCH (09:25)
[2023-08-12] MEDS: Sertraline 100 MG TAB PO SCH (09:25)
[2023-08-12] MEDS: Amlodipine 10 MG TAB PO SCH (09:25)
[2023-08-12] MEDS: Potassium Chloride 10 MEQ TAB PO SCH (09:25)
[2023-08-12] MEDS ORDERED: Electrolyte Replacement Protocol 1 EACH FS SCH (12:15)
[2023-08-12] MEDS ORDERED: Magnevist 469MG/ML 20 ML VIAL ONE (12:38)
[2023-08-12] MEDS: Potassium Chloride 20 MEQ TAB PO SCH (14:12)
[2023-08-12] MEDS: Magnesium 2 GM/50 ML(in water) 2 GM in Premix 1 BAG IVPB SCH (14:12)
[2023-08-12] MEDS: Acetaminophen 500 MG TAB PO PRN (15:19)
[2023-08-13 04:24] LABS: Anion Gap 13 mmol/L (10-20); BUN (Urea Nitrogen) 13 mg/dL (9.8-20.1); Calc. Creatinine Clearance 69 mL/min (70-130); Carbon Dioxide 21 mmol/L (23-31); Chloride 109 mmol/L (98-107); Estimated GFR 72; Glucose 88 mg/dL (83-110); Magnesium 2.2 mg/dL (1.6-2.6); Potassium 3.8 mmol/L (3.5-5.1); Sodium 139 mmol/L (136-145)
[2023-08-13] MEDS: Levothyroxine Sodium 100 MCG TAB PO SCH (06:34)
[2023-08-13 08:43] VITALS: TEMP 98.2
[2023-08-13 12:45] VITALS: BP 115/60
== END 2023-08-13 12:35 | disposition home health service (06) ==
LOC: CSHERS 18:17 → CSHTELE 08-12 01:59
PROVIDERS: ADMIT Hospitalist; ATTEND Family Medicine
DX: G40.919 Epilepsy, unspecified, intractable, without status epilepticus (principal); I10 Essential (primary) hypertension; E03.9 Hypothyroidism, unspecified; E78.2 Mixed hyperlipidemia; E87.6 Hypokalemia; M19.90 Unspecified osteoarthritis, unspecified site; Z79.890 Hormone replacement therapy; Z79.82 Long term (current) use of aspirin; Z79.899 Other long term (current) drug therapy
CPT/HCPCS: 70450; 70553; 74177; 76377; 80048 ×2; 80053; 80177; 80184; 80306; 80307; 81001; 81025; 82550; 83735 ×2; 83880; 84146; 84484; 85025 ×2; 93005; 96372; 96375; 96376; 97116; 97535; A9579; G0378 ×3; J1650; J1953; J2060; J2560; J3475; J3480; J3490; Q9967; S0028; 36415; 96374

== ENCOUNTER 2023-08-28 10:16 | Emergency (ER) | payer OTHER ==
[2023-08-28] MEDS ORDERED: levETIRAcetam 500 MG (5 mL) VIAL ONE (10:45)
[2023-08-28 11:01] LABS: #Eosinphils 0.02 10x3/uL (0.0-0.5); #Monocytes 0.64 10x3/uL (0.0-1.1); %Basophils 1.2 % (0.0-2.0); %Eosinophils 0.2 % (0.0-6.0); %Monocytes 7.8 % (0.0-10.0); %Neutrophils 63.4 % (40.0-75.0); Hematocrit 37.8 % (34.9-44.5); Hemoglobin 12.6 g/dL (12.0-15.5); Mean Corpuscular HGB CONC 33.3 g/dL (32.0-36.0); Mean Platelet Volume 9.7 fL (7.4-10.4); Platelet Count 333 10x3/uL (150-450); RBC Distribution Width 14.2 % (11.5-14.5); White Blood Cell (WBC) Count 8.2 10x3/uL (3.5-10.5)
[2023-08-28 11:21] LABS: Acetaminophen 16 mcg/mL (10.0-30.0); Alcohol Less than 10.0 mg/dL (Less than 10); Magnesium 1.9 mg/dL (1.6-2.6); Salicylate Less than 8.0 mg/dL (15.0-30.0)
[2023-08-28 11:22] LABS: ALT (SGPT) 11 U/L (8-55); AST (SGOT) 14 U/L (5-34); Albumin 3.6 g/dL (3.4-4.8); Alkaline Phosphatase 125 U/L (40-110); Anion Gap 15 mmol/L (10-20); BUN (Urea Nitrogen) 9 mg/dL (9.8-20.1); Bilirubin, Total 0.3 mg/dL (0.2-1.2); Calc. Creatinine Clearance 0 mL/min (70-130); Calcium 9.2 mg/dL (7.8-10.44); Carbon Dioxide 18 mmol/L (23-31); Chloride 109 mmol/L (98-107); Estimated GFR 69; Globulin 3.5 g/dL (2.4-3.5); Glucose 83 mg/dL (83-110); Potassium 3.4 mmol/L (3.5-5.1); Protein, Total 7.1 g/dL (5.8-8.1); Sodium 139 mmol/L (136-145)
== END 2023-08-28 16:07 | disposition home or self-care (01) ==
LOC: CSHERS 10:16
DX: R56.9 Unspecified convulsions (principal); I10 Essential (primary) hypertension; E03.9 Hypothyroidism, unspecified; Z79.899 Other long term (current) drug therapy
CPT/HCPCS: 70450; 80053; 80177; 80307; 82962; 83605; 83735; 85025; J1953; 36416; 96374

== ENCOUNTER 2023-10-10 17:58 | Emergency (ER) | payer OTHER ==
[2023-10-10] MEDS ORDERED: Ondansetron PF 4 MG/2 ML Vial ONE (18:30)
[2023-10-10] MEDS ORDERED: levETIRAcetam 500 MG (5 mL) VIAL ONE (18:30)
[2023-10-10 18:53] LABS: #Basophils 0.06 10x3/uL (0.0-0.2); #Eosinphils 0.16 10x3/uL (0.0-0.5); #Monocytes 1.16 10x3/uL (0.0-1.1); #Neutrophils 6.55 10x3/uL (1.5-8.4); %Basophils 0.5 % (0.0-2.0); %Eosinophils 1.4 % (0.0-6.0); %Lymphocytes 28.9 % (18.0-47.0); %Monocytes 10.3 % (0.0-10.0); %Neutrophils 58.5 % (40.0-75.0); Hematocrit 31.9 % (34.9-44.5); Hemoglobin 10.5 g/dL (12.0-15.5); Mean Corpuscular HGB CONC 32.9 g/dL (32.0-36.0); Mean Corpuscular Hemoglobin 30.2 pg (27.0-33.0); Mean Corpuscular Volume 91.7 fL (81.6-98.3); Mean Platelet Volume 9.7 fL (7.4-10.4); Platelet Count 277 10x3/uL (150-450); Red Blood Cell (RBC) Count 3.48 10x6/uL (3.90-5.03); White Blood Cell (WBC) Count 11.2 10x3/uL (3.5-10.5)
[2023-10-10 19:05] LABS: ALT (SGPT) 33 U/L (8-55); AST (SGOT) 49 U/L (5-34); Albumin 2.8 g/dL (3.4-4.8); Alkaline Phosphatase 149 U/L (40-110); Anion Gap 12 mmol/L (10-20); BUN (Urea Nitrogen) 12 mg/dL (9.8-20.1); Bilirubin, Total Less than 0.2 mg/dL (0.2-1.2); Calc. Creatinine Clearance 0 mL/min (70-130); Calcium 8.4 mg/dL (7.8-10.44); Carbon Dioxide 21 mmol/L (23-31); Chloride 108 mmol/L (98-107); Estimated GFR 67; Globulin 3.7 g/dL (2.4-3.5); Glucose 108 mg/dL (83-110); Lipase 7 U/L (8-78); Potassium 3.2 mmol/L (3.5-5.1); Protein, Total 6.5 g/dL (5.8-8.1); Sodium 138 mmol/L (136-145)
[2023-10-10 19:08] LABS: Troponin I Less than 0.010 ng/mL (< 0.028)
[2023-10-10] MEDS ORDERED: diphenhydrAMINE 50 MG/ML VIAL ONE (20:26)
[2023-10-10 20:49] LABS: Bilirubin Neg (Negative); Blood, Urine Negative (Negative); Clarity Clear (Clear); Glucose, Urine (Dipstick) Normal (Negative); Ketone, Urine Negative (Negative); Leukocyte Negative (Negative); Nitrite Negative (Negative); Protein, Urine (Dipstick) Negative (Neg-Trace); Urobilinogen Normal mg/dL (Less than 2); pH, Urine 6.5 (5.0-9.0)
[2023-10-10 21:18] LABS: Bacteria/HPF Rare-Few HPF (None Seen); CAUTI Indications for Culture Pelvic or flank pain; RBC/HPF None Seen HPF (0-3); Squamous Epithelial 0-3 HPF (0-3); WBC/HPF None Seen HPF (0-3)
[2023-10-10 21:19] LABS: Urine Culture Reflex No No
[2023-10-10] MEDS ORDERED: Metoclopramide HCl 10 MG (2 mL) VIAL ONE (21:24)
[2023-10-10 21:39] LABS: Lactic Acid 1.6 mmol/L (0.5-2.2)
== END 2023-10-10 22:09 | disposition home or self-care (01) ==
LOC: CSHERS 17:58
DX: R56.9 Unspecified convulsions (principal); R51.9 Headache, unspecified; R11.2 Nausea with vomiting, unspecified; I10 Essential (primary) hypertension; E03.9 Hypothyroidism, unspecified
CPT/HCPCS: 71045; 80053; 80177; 81001; 83605; 83690; 83880; 84484; 85025; 87040; 93005; 96365; 96375; 99284; J1200; J1953; J2405; J2765; 36415

== ENCOUNTER 2023-11-02 16:40 | Emergency (ER) | payer OTHER ==
[2023-11-02 17:45] LABS: #Basophils 0.07 10x3/uL (0.0-0.2); #Eosinphils 0.12 10x3/uL (0.0-0.5); #Monocytes 0.83 10x3/uL (0.0-1.1); #Neutrophils 4.45 10x3/uL (1.5-8.4); %Basophils 0.7 % (0.0-2.0); %Eosinophils 1.2 % (0.0-6.0); %Lymphocytes 42.7 % (18.0-47.0); %Monocytes 8.6 % (0.0-10.0); %Neutrophils 46.3 % (40.0-75.0); Hematocrit 33.2 % (34.9-44.5); Hemoglobin 11.2 g/dL (12.0-15.5); Mean Corpuscular HGB CONC 33.7 g/dL (32.0-36.0); Mean Corpuscular Hemoglobin 30.3 pg (27.0-33.0); Mean Corpuscular Volume 89.7 fL (81.6-98.3); Mean Platelet Volume 10.2 fL (7.4-10.4); Platelet Count 310 10x3/uL (150-450); RBC Distribution Width 15.4 % (11.5-14.5); White Blood Cell (WBC) Count 9.6 10x3/uL (3.5-10.5)
[2023-11-02 17:59] LABS: Anion Gap 14 mmol/L (10-20); BUN (Urea Nitrogen) 13 mg/dL (9.8-20.1); Calc. Creatinine Clearance 0 mL/min (70-130); Carbon Dioxide 19 mmol/L (23-31); Chloride 106 mmol/L (98-107); Potassium 3.6 mmol/L (3.5-5.1); Sodium 135 mmol/L (136-145)
[2023-11-02 18:00] LABS: ALT (SGPT) 20 U/L (8-55); AST (SGOT) 21 U/L (5-34); Albumin 3.3 g/dL (3.4-4.8); Alkaline Phosphatase 158 U/L (40-110); Bilirubin, Total 0.2 mg/dL (0.2-1.2); Calcium 8.8 mg/dL (7.8-10.44); Estimated GFR 52; Glucose 90 mg/dL (83-110); Lipase 8 U/L (8-78); Protein, Total 7.3 g/dL (5.8-8.1)
[2023-11-02 19:57] LABS: Bilirubin Neg (Negative); Blood, Urine Negative (Negative); Clarity Clear (Clear); Glucose, Urine (Dipstick) Normal (Negative); Ketone, Urine Negative (Negative); Leukocyte Negative (Negative); Nitrite Negative (Negative); Protein, Urine (Dipstick) Negative (Neg-Trace); Specific Gravity, Urine 1.005 (1.005-1.030); Urobilinogen Normal mg/dL (Less than 2)
[2023-11-02] MEDS ORDERED: levETIRAcetam 500 MG (5 mL) VIAL ONE (20:16)
[2023-11-02 20:40] LABS: Bacteria/HPF None Seen HPF (None Seen); CAUTI Indications for Culture Pelvic or flank pain; RBC/HPF 0-3 HPF (0-3); Squamous Epithelial 0-3 HPF (0-3); Urine Culture Reflex No No; WBC/HPF None Seen HPF (0-3)
== END 2023-11-02 21:20 | disposition home or self-care (01) ==
LOC: CSHERS 16:40
DX: R56.9 Unspecified convulsions (principal); R11.2 Nausea with vomiting, unspecified; I10 Essential (primary) hypertension; E03.9 Hypothyroidism, unspecified; Z79.899 Other long term (current) drug therapy
CPT/HCPCS: 51701; 81001; 83690; 93005; 96361; 96365; 99284; J1953; 80053; 84443; 85025

== ENCOUNTER 2023-11-14 18:03 | Emergency (ER) | payer OTHER ==
[2023-11-14 18:47] LABS: #Basophils 0.06 10x3/uL (0.0-0.2); #Eosinphils 0.09 10x3/uL (0.0-0.5); #Monocytes 0.77 10x3/uL (0.0-1.1); #Neutrophils 3.34 10x3/uL (1.5-8.4); %Basophils 0.7 % (0.0-2.0); %Lymphocytes 51.5 % (18.0-47.0); %Monocytes 8.7 % (0.0-10.0); %Neutrophils 37.9 % (40.0-75.0); Hematocrit 37.7 % (34.9-44.5); Hemoglobin 12.1 g/dL (12.0-15.5); Mean Corpuscular HGB CONC 32.1 g/dL (32.0-36.0); Mean Corpuscular Hemoglobin 29.6 pg (27.0-33.0); Mean Corpuscular Volume 92.2 fL (81.6-98.3); Mean Platelet Volume 9.9 fL (7.4-10.4); Platelet Count 308 10x3/uL (150-450); RBC Distribution Width 14.7 % (11.5-14.5); Red Blood Cell (RBC) Count 4.09 10x6/uL (3.90-5.03); White Blood Cell (WBC) Count 8.8 10x3/uL (3.5-10.5)
[2023-11-14 18:49] LABS: ALT (SGPT) 16 U/L (8-55); AST (SGOT) 24 U/L (5-34); Albumin 3.7 g/dL (3.4-4.8); Alkaline Phosphatase 139 U/L (40-110); Anion Gap 14 mmol/L (10-20); BUN (Urea Nitrogen) 17 mg/dL (9.8-20.1); Bilirubin, Total 0.3 mg/dL (0.2-1.2); Calc. Creatinine Clearance 0 mL/min (70-130); Calcium 9.2 mg/dL (7.8-10.44); Carbon Dioxide 22 mmol/L (23-31); Chloride 105 mmol/L (98-107); Estimated GFR 46; Glucose 83 mg/dL (83-110); Potassium 3.7 mmol/L (3.5-5.1); Protein, Total 7.7 g/dL (5.8-8.1); Sodium 137 mmol/L (136-145)
[2023-11-14] MEDS ORDERED: levETIRAcetam 500 MG (5 mL) VIAL ONE (19:18)
[2023-11-14 20:55] LABS: Bilirubin Neg (Negative); Blood, Urine Negative (Negative); Clarity Clear (Clear); Glucose, Urine (Dipstick) Normal (Negative); Ketone, Urine Negative (Negative); Leukocyte 25 (Negative); Nitrite Negative (Negative); Protein, Urine (Dipstick) Negative (Neg-Trace); Specific Gravity, Urine 1.015 (1.005-1.030); Urobilinogen Normal mg/dL (Less than 2)
[2023-11-14 21:21] LABS: CAUTI Indications for Culture Alt mental st,lethar; RBC/HPF None Seen HPF (0-3)
[2023-11-14 21:22] LABS: Bacteria/HPF None Seen HPF (None Seen); Squamous Epithelial 0-3 HPF (0-3)
[2023-11-14 21:23] LABS: WBC/HPF 0-3 HPF (0-3)
[2023-11-14 21:24] LABS: Urine Culture Reflex No No
== END 2023-11-14 21:40 | disposition home or self-care (01) ==
LOC: CSHERS 18:03
DX: G40.909 Epilepsy, unspecified, not intractable, without status epilepticus (principal); I10 Essential (primary) hypertension; E03.9 Hypothyroidism, unspecified; E78.5 Hyperlipidemia, unspecified; Z79.899 Other long term (current) drug therapy
CPT/HCPCS: 70450; 72125; 80053; 80177; 81001; 84146; 85025; 87086; 93005; J1953; 36415; 96361; 96374

== ENCOUNTER 2024-01-10 16:57 | Emergency (ER) | payer OTHER | END 2024-01-10 19:17 | disposition home or self-care (01) | LOC: CSHERS 16:57 | DX: G40.909 Epilepsy, unspecified, not intractable, without status epilepticus (principal); E03.9 Hypothyroidism, unspecified; I10 Essential (primary) hypertension; M19.90 Unspecified osteoarthritis, unspecified site | CPT/HCPCS: 70450 ==

== ENCOUNTER 2024-02-04 23:42 | Emergency (ER) | payer OTHER ==
[2024-02-04] MEDS ORDERED: Acetaminophen 500 MG TAB ONE (23:59)
== END 2024-02-05 02:05 | disposition home or self-care (01) ==
LOC: CSHERS 23:42
DX: S09.90XA Unspecified injury of head, initial encounter (principal); S40.012A Contusion of left shoulder, initial encounter; I10 Essential (primary) hypertension; E03.9 Hypothyroidism, unspecified; Z79.899 Other long term (current) drug therapy; W18.30XA Fall on same level, unspecified, initial encounter
CPT/HCPCS: 36415; 70450; 72125; 72170; 72192; 80053; 80177; 84146; 85025; 93005; 96365; J1953

== ENCOUNTER 2024-02-20 18:15 | Emergency (ER) | payer OTHER ==
[2024-02-20] MEDS ORDERED: Sucralfate 1 GM/10 ML UDCUP ONE (18:59)
[2024-02-20] MEDS ORDERED: Milk Of Magnesia 30 ML UDCUP ONE (19:02)
[2024-02-20] MEDS ORDERED: Lidocaine Viscous Sol 2% 15 ml UD Cup ONE (19:02)
[2024-02-20] MEDS ORDERED: Pantoprazole 40 MG VIAL ONE (19:02)
[2024-02-20 19:15] LABS: #Basophils 0.09 10x3/uL (0.0-0.2); #Eosinophils 0.13 10x3/uL (0.0-0.5); #Monocytes 0.85 10x3/uL (0.0-1.1); #Neutrophils 4.17 10x3/uL (1.5-8.4); %Eosinophils 1.4 % (0.0-6.0); %Lymphocytes 41.8 % (18.0-47.0); %Monocytes 9.4 % (0.0-10.0); %Neutrophils 46.1 % (40.0-75.0); Hematocrit 36.9 % (34.9-44.5); Hemoglobin 12.2 g/dL (12.0-15.5); Mean Corpuscular HGB CONC 33.1 g/dL (32.0-36.0); Mean Corpuscular Hemoglobin 30.2 pg (27.0-33.0); Mean Corpuscular Volume 91.3 fL (81.6-98.3); Mean Platelet Volume 10.4 fL (7.4-10.4); Platelet Count 293 10x3/uL (150-450); RBC Distribution Width 15.1 % (11.5-14.5); Red Blood Cell (RBC) Count 4.04 10x6/uL (3.90-5.03); White Blood Cell (WBC) Count 9.1 10x3/uL (3.5-10.5)
[2024-02-20 19:25] LABS: ALT (SGPT) 16 U/L (8-55); AST (SGOT) 23 U/L (5-34); Albumin 3.5 g/dL (3.4-4.8); Alkaline Phosphatase 158 U/L (40-110); Anion Gap 17 mmol/L (10-20); BUN (Urea Nitrogen) 12 mg/dL (9.8-20.1); Bilirubin, Total Less than 0.2 mg/dL (0.2-1.2); Calc. Creatinine Clearance 0 mL/min (70-130); Calcium 8.4 mg/dL (7.8-10.44); Carbon Dioxide 16 mmol/L (23-31); Chloride 110 mmol/L (98-107); Estimated GFR 69; Globulin 3.8 g/dL (2.4-3.5); Glucose 99 mg/dL (83-110); Lipase 9 U/L (8-78); Magnesium 2.1 mg/dL (1.6-2.6); Potassium 3.9 mmol/L (3.5-5.1); Protein, Total 7.3 g/dL (5.8-8.1); Sodium 139 mmol/L (136-145)
[2024-02-20 19:31] LABS: Troponin I Less than 0.010 ng/mL (< 0.028)
== END 2024-02-20 20:55 | disposition home or self-care (01) ==
LOC: CSHERS 18:15
DX: R07.9 Chest pain, unspecified (principal); E78.5 Hyperlipidemia, unspecified; I10 Essential (primary) hypertension
CPT/HCPCS: 71045; 80053; 83690; 83735; 84484; 85025; 93005; J2470; 36415; 96374

== ENCOUNTER 2024-03-27 18:15 | Emergency (ER) | payer OTHER ==
[2024-03-27 19:21] LABS: #Basophils 0.07 10x3/uL (0.0-0.2); #Eosinophils 0.08 10x3/uL (0.0-0.5); #Monocytes 0.78 10x3/uL (0.0-1.1); #Neutrophils 3.55 10x3/uL (1.5-8.4); %Basophils 0.8 % (0.0-2.0); %Eosinophils 0.9 % (0.0-6.0); %Lymphocytes 47.3 % (18.0-47.0); %Monocytes 9.1 % (0.0-10.0); %Neutrophils 41.5 % (40.0-75.0); Hematocrit 34.2 % (34.9-44.5); Hemoglobin 11.8 g/dL (12.0-15.5); Mean Corpuscular HGB CONC 34.5 g/dL (32.0-36.0); Mean Corpuscular Volume 89.8 fL (81.6-98.3); Mean Platelet Volume 10.3 fL (7.4-10.4); Platelet Count 289 10x3/uL (150-450); RBC Distribution Width 15.4 % (11.5-14.5); Red Blood Cell (RBC) Count 3.81 10x6/uL (3.90-5.03); White Blood Cell (WBC) Count 8.55 10x3/uL (3.5-10.5)
[2024-03-27 19:39] LABS: ALT (SGPT) 13 U/L (Less than 34); AST (SGOT) 19 U/L (11-34); Albumin 3.7 g/dL (3.1-4.5); Alkaline Phosphatase 154 U/L (40-110); Anion Gap 11 mmol/L (10-20); BUN (Urea Nitrogen) 11 mg/dL (9.8-20.1); Bilirubin, Total 0.1 mg/dL (0.3-1.2); Calc. Creatinine Clearance 0 mL/min (70-130); Calcium 8.2 mg/dL (7.8-10.44); Carbon Dioxide 22 mmol/L (23-31); Chloride 109 mmol/L (98-107); Estimated GFR 58; Globulin 3.9 g/dL (2.4-3.5); Glucose 81 mg/dL (83-110); Potassium 3.8 mmol/L (3.5-5.1); Protein, Total 7.6 g/dL (5.8-8.1); Sodium 138 mmol/L (136-145)
== END 2024-03-27 20:50 | disposition home or self-care (01) ==
LOC: CSHERS 18:15
DX: R56.9 Unspecified convulsions (principal); I10 Essential (primary) hypertension; E78.5 Hyperlipidemia, unspecified; E03.9 Hypothyroidism, unspecified; Z79.890 Hormone replacement therapy; Z79.899 Other long term (current) drug therapy
CPT/HCPCS: 70450; 80053; 80184; 85025; 93005

== ENCOUNTER 2024-04-09 15:21 | Emergency (ER) | payer OTHER ==
[2024-04-09] MEDS ORDERED: levETIRAcetam 500 MG (5 mL) VIAL ONE (15:57)
[2024-04-09 16:02] LABS: #Basophils 0.06 10x3/uL (0.0-0.2); #Monocytes 0.86 10x3/uL (0.0-1.1); #Neutrophils 3.68 10x3/uL (1.5-8.4); %Basophils 0.7 % (0.0-2.0); %Eosinophils 1.1 % (0.0-6.0); %Monocytes 9.6 % (0.0-10.0); %Neutrophils 41.3 % (40.0-75.0); Hematocrit 36.1 % (34.9-44.5); Hemoglobin 11.6 g/dL (12.0-15.5); Mean Corpuscular HGB CONC 32.1 g/dL (32.0-36.0); Mean Corpuscular Hemoglobin 29.1 pg (27.0-33.0); Mean Corpuscular Volume 90.7 fL (81.6-98.3); Mean Platelet Volume 10.2 fL (7.4-10.4); Platelet Count 275 10x3/uL (150-450); RBC Distribution Width 15.3 % (11.5-14.5); Red Blood Cell (RBC) Count 3.98 10x6/uL (3.90-5.03); White Blood Cell (WBC) Count 8.92 10x3/uL (3.5-10.5)
[2024-04-09 16:15] LABS: ALT (SGPT) 14 U/L (Less than 34); AST (SGOT) 22 U/L (11-34); Albumin 3.5 g/dL (3.1-4.5); Alkaline Phosphatase 144 U/L (40-110); Anion Gap 11 mmol/L (10-20); BUN (Urea Nitrogen) 20 mg/dL (9.8-20.1); Bilirubin, Total 0.2 mg/dL (0.3-1.2); Calc. Creatinine Clearance 0 mL/min (70-130); Calcium 8.3 mg/dL (7.8-10.44); Carbon Dioxide 19 mmol/L (23-31); Chloride 109 mmol/L (98-107); Estimated GFR 59; Globulin 3.9 g/dL (2.4-3.5); Glucose 86 mg/dL (83-110); Lipase 8 U/L (8-78); Potassium 4.2 mmol/L (3.5-5.1); Protein, Total 7.4 g/dL (5.8-8.1); Sodium 135 mmol/L (136-145)
[2024-04-09] MEDS ORDERED: Ondansetron PF 4 MG/2 ML Vial ONE (16:32)
[2024-04-09 17:32] LABS: Bilirubin Neg (Negative); Blood, Urine Negative (Negative); Clarity Clear (Clear); Glucose, Urine (Dipstick) Normal (Negative); Ketone, Urine Negative (Negative); Leukocyte Negative (Negative); Nitrite Negative (Negative); Protein, Urine (Dipstick) 15 mg/dl (Neg-Trace); Urobilinogen Normal mg/dL (Less than 2)
[2024-04-09 18:04] LABS: Bacteria/HPF None Seen HPF (None Seen); CAUTI Indications for Culture Pelvic or flank pain; RBC/HPF None Seen HPF (0-3); Squamous Epithelial 0-3 HPF (0-3); WBC/HPF None Seen HPF (0-3)
[2024-04-09 18:05] LABS: Urine Culture Reflex No No
== END 2024-04-09 18:26 | disposition home or self-care (01) ==
LOC: CSHERS 15:21
DX: G40.909 Epilepsy, unspecified, not intractable, without status epilepticus (principal); I10 Essential (primary) hypertension
CPT/HCPCS: 74177; 80053; 80184; 81001; 83690; 85025; 93005; J1953; J2405; 36415; 51701; 96374; 96375; Q9967

== ENCOUNTER 2024-09-10 13:33 | Emergency (ER) | payer OTHER ==
[2024-09-10] MEDS ORDERED: levETIRAcetam 500 MG (5 mL) VIAL ONE (14:09)
[2024-09-10 14:29] LABS: #Basophils 0.07 10x3/uL (0.0-0.2); #Eosinophils 0.07 10x3/uL (0.0-0.5); #Monocytes 0.83 10x3/uL (0.0-1.1); #Neutrophils 4.39 10x3/uL (1.5-8.4); %Basophils 0.8 % (0.0-2.0); %Eosinophils 0.8 % (0.0-6.0); %Lymphocytes 40.0 % (18.0-47.0); %Monocytes 9.2 % (0.0-10.0); %Neutrophils 48.6 % (40.0-75.0); Hematocrit 34.6 % (34.9-44.5); Hemoglobin 11.4 g/dL (12.0-15.5); Mean Corpuscular Hemoglobin 30.5 pg (27.0-33.0); Mean Corpuscular Volume 92.5 fL (81.6-98.3); Platelet Count 310 10x3/uL (150-450); Red Blood Cell (RBC) Count 3.74 10x6/uL (3.90-5.03); White Blood Cell (WBC) Count 9.02 10x3/uL (3.5-10.5)
[2024-09-10 14:40] LABS: ALT (SGPT) 35 U/L (Less than 34); AST (SGOT) 29 U/L (11-34); Albumin 3.4 g/dL (3.1-4.5); Alkaline Phosphatase 137 U/L (40-110); Anion Gap 13 mmol/L (10-20); BUN (Urea Nitrogen) 12 mg/dL (9.8-20.1); Bilirubin, Total 0.2 mg/dL (0.3-1.2); Calc. Creatinine Clearance 0 mL/min (70-130); Calcium 7.9 mg/dL (7.8-10.44); Carbon Dioxide 22 mmol/L (23-31); Chloride 109 mmol/L (98-107); Globulin 3.8 g/dL (2.4-3.5); Glucose 79 mg/dL (83-110); Potassium 3.8 mmol/L (3.5-5.1); Sodium 140 mmol/L (136-145)
[2024-09-10 14:41] LABS: Lipase 4.0 U/L (8-78)
[2024-09-10 15:10] LABS: Glucose, Urine (Dipstick) Normal (Negative); Leukocyte Negative (Negative); Protein, Urine (Dipstick) Negative (Neg-Trace); Specific Gravity, Urine 1.015 (1.005-1.030)
[2024-09-10 15:56] LABS: Bacteria/HPF 4+ HPF (None Seen); CAUTI Indications for Culture Pelvic or flank pain; RBC/HPF None Seen HPF (0-3); Urine Culture Reflex No No; WBC/HPF 0-3 HPF (0-3)
== END 2024-09-10 18:17 | disposition home or self-care (01) ==
LOC: CSHERS 13:33
DX: R56.9 Unspecified convulsions (principal); K57.92 Diverticulitis of intestine, part unspecified, without perforation or abscess without bleeding; I10 Essential (primary) hypertension
CPT/HCPCS: 70450; 74177; 80177; 80184; 81001; 82962; 83690; 93005; 96374; 99284; J1953; 36416; 80053; 84443; 85025; Q9967

== ENCOUNTER 2024-11-13 12:22 | Emergency (ER) | payer OTHER ==
[2024-11-13] MEDS ORDERED: levETIRAcetam 500 MG (5 mL) VIAL ONE (14:02)
[2024-11-13 14:04] LABS: ALT (SGPT) 22 U/L (Less than 34); AST (SGOT) 28 U/L (11-34); Albumin 3.2 g/dL (3.1-4.5); Alkaline Phosphatase 143 U/L (40-110); Anion Gap 12 mmol/L (10-20); BUN (Urea Nitrogen) 19 mg/dL (9.8-20.1); Bilirubin, Total 0.2 mg/dL (0.3-1.2); Calc. Creatinine Clearance 0 mL/min (70-130); Calcium 7.8 mg/dL (7.8-10.44); Carbon Dioxide 22 mmol/L (23-31); Chloride 108 mmol/L (98-107); Globulin 3.7 g/dL (2.4-3.5); Glucose 81 mg/dL (83-110); Potassium 5.1 mmol/L (3.5-5.1); Sodium 137 mmol/L (136-145)
[2024-11-13 14:33] LABS: #Basophils 0.08 10x3/uL (0.0-0.2); #Eosinophils 0.10 10x3/uL (0.0-0.5); #Monocytes 1.00 10x3/uL (0.0-1.1); #Neutrophils 4.80 10x3/uL (1.5-8.4); %Basophils 0.7 % (0.0-2.0); %Eosinophils 0.9 % (0.0-6.0); %Lymphocytes 44.2 % (18.0-47.0); %Monocytes 9.3 % (0.0-10.0); %Neutrophils 44.6 % (40.0-75.0); Hematocrit 34.8 % (34.9-44.5); Hemoglobin 11.1 g/dL (12.0-15.5); Mean Corpuscular Hemoglobin 29.7 pg (27.0-33.0); Mean Corpuscular Volume 93.0 fL (81.6-98.3); Platelet Count 274 10x3/uL (150-450); Red Blood Cell (RBC) Count 3.74 10x6/uL (3.90-5.03); White Blood Cell (WBC) Count 10.78 10x3/uL (3.5-10.5)
== END 2024-11-13 14:59 | disposition home or self-care (01) ==
LOC: CSHERS 12:22
DX: R56.9 Unspecified convulsions (principal); I10 Essential (primary) hypertension; Z55.6 Problems related to health literacy
CPT/HCPCS: 80053; 82962; 85025; 93005; 94760; J1953; 36415; 36416; 96374

== ENCOUNTER 2025-02-03 11:59 | Emergency (ER) | payer OTHER ==
[2025-02-03 14:16] LABS: #Basophils 0.07 10x3/uL (0.0-0.2); #Eosinophils 0.17 10x3/uL (0.0-0.5); #Monocytes 0.82 10x3/uL (0.0-1.1); #Neutrophils 3.16 10x3/uL (1.5-8.4); %Basophils 0.9 % (0.0-2.0); %Eosinophils 2.2 % (0.0-6.0); %Lymphocytes 44.7 % (18.0-47.0); %Monocytes 10.7 % (0.0-10.0); %Neutrophils 41.1 % (40.0-75.0); Hematocrit 35.5 % (34.9-44.5); Hemoglobin 11.7 g/dL (12.0-15.5); Mean Corpuscular Hemoglobin 29.1 pg (27.0-33.0); Mean Corpuscular Volume 88.3 fL (81.6-98.3); Platelet Count 221 10x3/uL (150-450); Red Blood Cell (RBC) Count 4.02 10x6/uL (3.90-5.03); White Blood Cell (WBC) Count 7.69 10x3/uL (3.5-10.5)
[2025-02-03 14:26] LABS: Glucose, Urine (Dipstick) Normal (Negative); Leukocyte Negative (Negative); Protein, Urine (Dipstick) Negative (Neg-Trace); Specific Gravity, Urine 1.010 (1.005-1.030)
[2025-02-03 14:32] LABS: Acetaminophen Less than 10 mcg/mL (Less than 10); Salicylate Less than 8.0 mg/dL (Less than 8.0)
[2025-02-03 14:33] LABS: ALT (SGPT) 18 U/L (Less than 34); AST (SGOT) 23 U/L (11-34); Albumin 3.4 g/dL (3.1-4.5); Alkaline Phosphatase 128 U/L (40-110); Anion Gap 14 mmol/L (10-20); BUN (Urea Nitrogen) 17 mg/dL (9.8-20.1); Bilirubin, Total 0.2 mg/dL (0.3-1.2); Calc. Creatinine Clearance 0 mL/min (70-130); Calcium 8.4 mg/dL (7.8-10.44); Carbon Dioxide 22 mmol/L (23-31); Chloride 111 mmol/L (98-107); Globulin 3.5 g/dL (2.4-3.5); Glucose 83 mg/dL (83-110); Potassium 4.5 mmol/L (3.5-5.1); Sodium 142 mmol/L (136-145)
[2025-02-03 14:48] LABS: Bacteria/HPF None Seen HPF (None Seen); CAUTI Indications for Culture Alt mental st,lethar; RBC/HPF None Seen HPF (0-3); Urine Culture Reflex No No; WBC/HPF None Seen HPF (0-3)
[2025-02-03 15:02] LABS: Cocaine Metabolite Screen Negative (Negative); THC/Cannabinoid Screen Negative (Negative); Tricyclic Screen Negative (Negative)
== END 2025-02-03 15:30 | disposition home or self-care (01) ==
LOC: CSHERS 11:59
DX: S00.93XA Contusion of unspecified part of head, initial encounter (principal); S70.01XA Contusion of right hip, initial encounter; R56.9 Unspecified convulsions; I10 Essential (primary) hypertension; W19.XXXA Unspecified fall, initial encounter; Y92.009 Unspecified place in unspecified non-institutional (private) residence as the place of occurrence of the external cause
CPT/HCPCS: 70450; 72125; 73502; 80053; 80306; 80307; 81001; 82962; 85025; 93005; J2270; 36415; 36416; 51701; 96374